=== PATIENT | female | born 2000 | race Caucasian/White ===

== ENCOUNTER → 2021-06-29 | Outpatient (CLI) | payer OTHER ==
--- NOTE | 2021-06-29 14:55 | REP ---
INDICATION: RIGHT BREAST LUMP. COMPARISON: None TECHNIQUE: Real-time sonographic evaluation of right breast performed. FINDINGS: There is an oval solid mass in the right retroareolar region at the site of a palpable lump. There is internal blood flow with Doppler evaluation. It measures 4.7 x 2.4 x 5.7 cm, average KP a 8.45. IMPRESSION: BIRADS/ACR category 4, suspicious. Solid retroareolar nodule measuring 4.7 x 2.4 x 5.7 cm. Recommend ultrasound-guided biopsy. RECOMMENDATION: Recommend ultrasound-guided biopsy right breast mass. <Electronically signed by Mark Taylor > 06/29/21 [id number]
== END ==
LOC: M WHC 12:05
PROVIDERS: ATTEND Family Medicine
DX: N63.10 Unspecified lump in the right breast, unspecified quadrant (principal)

== ENCOUNTER → 2021-07-21 | Outpatient (CLI) | payer OTHER ==
[~2021-07-21] MED LIST: PRENTAB9 PO
[2021-07-21 11:53] VITALS: BP 114/68
--- NOTE | 2021-07-21 18:22 | REP ---
INDICATION: BX RIGHT BREAST MASS WITH CLIP PLACEMENT IF INDICATED. COMPARISON: None. TECHNIQUE: The procedure was performed under the direct supervision of Dr. Taylor. Patient has a history of a 4.7 x 2.4 x 5.7 cm solid retroareolar nodule in the right breast seen on a previous ultrasound dated 06/29/2021. The risks and benefits of the procedure were explained to the patient and informed consent was obtained. The right breast nodule was localized using ultrasound guidance. The skin was prepped and draped in a sterile fashion. 7 mL 1% buffered Xylocaine was used as a local anesthetic. Using ultrasound guidance a 14-gauge coaxial needle biopsy system was inserted and6 core biopsy samples were obtained. A marker clip (HydroMark shape 4) was placed at the biopsy site The patient tolerated the procedure well and there were no immediate complications. After the appropriate amount of monitored convalescence, the patient was discharged from the department. EBL: Less than 1 mL FINDINGS: None IMPRESSION: Ultrasound-guided right breast biopsy with marker clip placement. (HydroMark shape 4) <Electronically signed by Nehemias Guillen > 07/21/21 1523 <Electronically signed by Mark Taylor > 07/21/21 0059
== END ==
LOC: M WHCPRO 10:15
PROVIDERS: ATTEND Family Medicine
DX: R92.8 Other abnormal and inconclusive findings on diagnostic imaging of breast (principal)

== ENCOUNTER 2021-10-13 07:11 | Outpatient (CLI) | payer OTHER ==
[~2021-10-13] VITALS: Ht 154.9 cm; Wt 77.9 kg
[2021-10-13 07:32] VITALS: BP 100/56
[2021-10-13] MEDS ORDERED: HOME MED LIST COMPLETE! XX SCH (07:35)
== END 2021-10-13 08:15 | disposition home or self-care (01) ==
LOC: M LDO 07:11
PROVIDERS: ATTEND Registered Nurse
DX: O26.892 Other specified pregnancy related conditions, second trimester (principal); R10.2 Pelvic and perineal pain; Z3A.27 27 weeks gestation of pregnancy
CPT/HCPCS: 59025; G0378; G0463

== ENCOUNTER 2021-12-30 07:34 | Inpatient (IN) | payer OTHER ==
[~2021-12-30] VITALS: Ht 154.9 cm; Wt 85.1 kg
[2021-12-30] VITALS (30 sets, daily range): BP systolic 95–144; BP diastolic 53–97
[2021-12-30] MEDS ORDERED: LIDOCAINE 1% MDV 20ML VIAL INFIL PRN (09:30)
[2021-12-30] MEDS ORDERED: OXYTOCIN DRIP 30 UNITS in IV 1 EA IV PRN (09:30)
[2021-12-30 10:20] LABS: HEMATOCRIT 33.3 % (36.0-47.0); HEMOGLOBIN 11.2 g/dl (12.0-15.5); MEAN CORPUSCULAR HEMOGLOBIN 29.2 pg (27.0-33.0); MEAN CORPUSCULAR HGB CONC 33.6 g/dl (32.0-36.5); MEAN CORPUSCULAR VOLUME 86.9 fl (80.0-96.0); PLATELET COUNT, AUTOMATED 292 10^3/uL (150-450); RED BLOOD COUNT 3.83 10^6/uL (4.00-5.40)
[2021-12-30] MEDS ORDERED: HOME MED LIST COMPLETE! XX SCH (11:10)
[2021-12-30] MEDS: LR 1,000 ML IV SCH ×2 (13:53→20:14)
[2021-12-30] MEDS ORDERED: LACTATED RINGER'S 1000 ML IV STA (14:42)
[2021-12-30] MEDS ORDERED: FENTANYL 2MCG/ML ROPIVACAINE 0.2% IN 0.9% NACL 100ML IVBAG As Ordered ONE (15:01)
[2021-12-30] MEDS ORDERED: REFLB XX ONE ×2 (15:01→21:24)
[2021-12-30] MEDS ORDERED: ePHEDrine SULFATE 25 MG/5 ML(5MG/ML) SYRINGE IV PRN (15:20)
[2021-12-30] MEDS ORDERED: EPIDURAL COMMENT XX SCH (15:20)
[2021-12-30] MEDS ORDERED: ONDANSETRON 4MG/2ML VIAL IV PRN (15:20)
[2021-12-30] MEDS ORDERED: NALOXONE INJ 0.4MG/1ML VIAL (J2310 PER 1MG) IV PRN (15:20)
[2021-12-30] MEDS ORDERED: EPIDURAL/PCA KEYS XX PRN (15:20)
[2021-12-30] MEDS ORDERED: diphenhydrAMINE 50MG/ML VIAL (J1200) IV PRN (15:20)
[2021-12-30] MEDS ORDERED: REFRIGERATOR IV KEYS XX PRN (15:20)
[2021-12-30] MEDS ORDERED: LACTATED RINGER'S 1000 ML IV PRN (15:20)
[2021-12-30] MEDS: FENTANYL/ROPIVACAINE/NACL BAG 100 ML EPIDURAL SCH ×2 (15:40→21:30)
[2021-12-31 01:12] LABS: CORD GAS ABE V -5.7; CORD GAS HCO3 V 17.4 MEQ/L; CORD GAS O2 SAT V 86.2 %; CORD GAS PCO2 V 29.5 mmHg; CORD GAS PH V 7.389 UNITS; CORD GAS PO2 V 38.5 mmHg; CORD GAS SBC V 19.6 MEQ/L; CORD GAS TCO2 V 18.3 MEQ/L
[2021-12-31 01:13] LABS: CORD GAS ABE A -8.1; CORD GAS HCO3 A 18.7 MEQ/L; CORD GAS O2 SAT A 88.3 %; CORD GAS PCO2 A 42.8 mmHg; CORD GAS PH A 7.258 UNITS; CORD GAS PO2 A 45.6 mmHg; CORD GAS SBC A 17.9 MEQ/L
[2021-12-31] MEDS ORDERED: METHYLERGONOVINE MALEATE 0.2 MG TAB PO PRN (01:20)
[2021-12-31] MEDS ORDERED: DIBUCAINE 1% OINTMENT 30GM TOP PRN (01:20)
[2021-12-31] MEDS ORDERED: PROMETHAZINE 25 MG TAB PO PRN (01:20)
[2021-12-31] MEDS ORDERED: RHOGAM 300 MCG (1500 IU) INJ (J2790) IM SCH (01:20)
[2021-12-31] MEDS: LR 1,000 ML IV SCH ×2 (01:20→06:39)
[2021-12-31] MEDS ORDERED: ONDANSETRON 4MG/2ML VIAL IV PRN (01:20)
[2021-12-31] MEDS ORDERED: OXYTOCIN DRIP 30 UNITS in IV 1 EA IV SCH (01:20)
[2021-12-31] MEDS ORDERED: MEASLES,MUMPS,RUBELLA VACCINE INJ (MMR-II) (90707) SC SCH (01:20)
[2021-12-31] MEDS: ACETAMINOPHEN 500 MG TAB PO SCH ×4 (02:00→20:00)
[2021-12-31 03:35] VITALS: BP 133/77
[2021-12-31] MEDS: IBUPROFEN 800 MG TAB PO SCH ×3 (05:10→22:00)
[2021-12-31 05:59] VITALS: BP 138/87
[2021-12-31] MEDS: PRENATAL VITAMINS CHEWABLE TABLET PO SCH (07:44)
[2021-12-31] MEDS: DOCUSATE SODIUM 100MG CAPSULE PO SCH ×2 (07:44→20:08)
[2021-12-31] MEDS ORDERED: PRENATAL VITAMINS CHEWABLE TABLET PO SCH (09:00)
[2021-12-31 18:00] VITALS: BP 136/61
[2022-01-01] MEDS: ACETAMINOPHEN 500 MG TAB PO SCH ×2 (02:00→08:22)
[2022-01-01] MEDS: IBUPROFEN 800 MG TAB PO SCH (05:11)
[2022-01-01 06:00] VITALS: BP 112/68
[2022-01-01 07:45] LABS: HEMATOCRIT 31.3 % (36.0-47.0); HEMOGLOBIN 10.2 g/dl (12.0-15.5); MEAN CORPUSCULAR HEMOGLOBIN 28.8 pg (27.0-33.0); MEAN CORPUSCULAR HGB CONC 32.6 g/dl (32.0-36.5); MEAN CORPUSCULAR VOLUME 88.4 fl (80.0-96.0); PLATELET COUNT, AUTOMATED 233 10^3/uL (150-450); RED BLOOD COUNT 3.54 10^6/uL (4.00-5.40); WHITE BLOOD COUNT 11.9 10^3/uL (4.0-10.0)
[2022-01-01] MEDS: DOCUSATE SODIUM 100MG CAPSULE PO SCH (08:21)
[2022-01-01] MEDS: PRENATAL VITAMINS CHEWABLE TABLET PO SCH (08:21)
== END 2022-01-01 13:00 | disposition home or self-care (01) | DRG 807 ==
LOC: M LDO 07:34 → M LDI 09:27 → M OBS 12-31 03:13
PROVIDERS: ADMIT Registered Nurse; ATTEND Obstetrics & Gynecology
PROC: 10E0XZZ Delivery of Products of Conception, External Approach (ICD-10-PCS; principal; 2021-12-31)
DX: O80 Encounter for full-term uncomplicated delivery (principal); Z37.0 Single live birth; Z3A.38 38 weeks gestation of pregnancy

== ENCOUNTER 2023-10-30 08:29 | Inpatient (IN) | payer OTHER ==
[~2023-10-30] VITALS: Ht 154.9 cm; Wt 90.7 kg
[2023-10-30] VITALS (9 sets, daily range): BP systolic 111–137; BP diastolic 59–83
[2023-10-30] MEDS ORDERED: CARBOPROST TROMETHAMINE 250 MCG/ML AMP IM PRN (09:00)
[2023-10-30] MEDS ORDERED: METHYLERGONOVINE MALEATE 0.2MG/ML 1ML VIAL IM PRN (09:00)
[2023-10-30] MEDS ORDERED: OXYTOCIN DRIP 30 UNITS in IV 1 EA IV PRN (09:00)
[2023-10-30] MEDS ORDERED: TRANEXAMIC ACID INJection 1,000 MG in NS 100 ML IV PRN (09:00)
[2023-10-30] MEDS ORDERED: INSULIN REGULAR IN 0.9 % NACL 100 UNIT in IV 1 EA IV SCH (09:00)
[2023-10-30] MEDS ORDERED: LIDOCAINE 1% MDV 20ML VIAL INFIL PRN (09:00)
[2023-10-30] MEDS ORDERED: NS 1,000 ML IV SCH (09:00)
[2023-10-30] MEDS ORDERED: INSULIN IV RATE CHANGE DOCUMENTATION ML/HR XX SCH (09:00)
[2023-10-30] MEDS ORDERED: LR 1,000 ML IV SCH (09:00)
[2023-10-30] MEDS ORDERED: OXYTOCIN INJ 10UNITS/ML 1ML VIAL IM PRN (09:00)
[2023-10-30] MEDS ORDERED: OXYTOCIN INJ 10UNITS/ML 1ML VIAL IV PRN (09:00)
[2023-10-30] MEDS: LACTATED RINGER'S 1000 ML IV STA (09:22)
[2023-10-30] MEDS: miSOPROStol 50MCG 1/2 TABLET PO PRN (09:36)
[2023-10-30 09:38] LABS: HEMATOCRIT 31.5 % (36.0-47.0); HEMOGLOBIN 10.4 g/dl (12.0-15.5); MEAN CORPUSCULAR HEMOGLOBIN 27.7 pg (27.0-33.0); MEAN CORPUSCULAR VOLUME 83.8 fl (80.0-96.0); PLATELET COUNT, AUTOMATED 281 10^3/uL (150-450); RED BLOOD COUNT 3.76 10^6/uL (4.00-5.40); WHITE BLOOD COUNT 6.8 10^3/uL (4.0-10.0)
[2023-10-30] MEDS ORDERED: HOME MED LIST COMPLETE! XX SCH (09:55)
[2023-10-30] MEDS: LR 1,000 ML IV SCH (13:12)
[2023-10-31] VITALS (65 sets, daily range): BP systolic 108–185; BP diastolic 56–111
[2023-10-31] MEDS ORDERED: diphenhydrAMINE 50MG/ML VIAL IV PRN (04:25)
[2023-10-31] MEDS ORDERED: LR 500 ML IV PRN (04:25)
[2023-10-31] MEDS ORDERED: ONDANSETRON 4MG 2ML VIAL IV PRN (04:25)
[2023-10-31] MEDS ORDERED: NALOXONE INJ 0.4MG/1ML VIAL IV PRN (04:25)
[2023-10-31] MEDS ORDERED: EPIDURAL/PCA KEYS XX PRN (04:25)
[2023-10-31] MEDS: FENTANYL/ROPIVACAINE/NACL BAG 100 ML EPIDURAL SCH (05:00)
[2023-10-31] MEDS: ePHEDrine SULFATE 25 MG/5 ML(5MG/ML) SYRINGE IVP PRN (06:19)
[2023-10-31] MEDS ORDERED: OXYTOCIN 30UNITS IN 0.9% NaCl 500ML IV BAG As Ordered ONE (07:26)
[2023-10-31] MEDS: OXYTOCIN DRIP 30 UNITS in IV 1 EA IV SCH ×2 (07:46→23:29)
[2023-10-31] MEDS: diphenhydrAMINE 50MG CAP PO ONE (13:00)
[2023-10-31] MEDS ORDERED: DIBUCAINE 1% OINTMENT 30GM TOP PRN (23:20)
[2023-10-31] MEDS ORDERED: RHOGAM 300MCG (1500IU) INJ IM SCH (23:20)
[2023-10-31] MEDS: LR 1,000 ML IV SCH (23:20)
[2023-10-31] MEDS ORDERED: METHYLERGONOVINE MALEATE 0.2MG/ML 1ML VIAL IM PRN (23:20)
[2023-10-31] MEDS ORDERED: ACETAMINOPHEN 500 MG TAB PO PRN (23:20)
[2023-10-31] MEDS ORDERED: IBUPROFEN 600MG TAB PO PRN (23:20)
[2023-10-31] MEDS ORDERED: METOCLOPRAMIDE INJ 10MG/2ML VIAL IV PRN (23:20)
[2023-10-31] MEDS: OXYTOCIN DRIP 30 UNITS in IV 1 EA IV PRN (23:22)
[2023-11-01 00:10] VITALS: BP 154/84
[2023-11-01 00:42] VITALS: BP 170/87
[2023-11-01 00:44] VITALS: BP 151/84
[2023-11-01 01:29] VITALS: BP 131/68; O2SAT 99
[2023-11-01] MEDS: IBUPROFEN 800 MG TAB PO PRN (01:45)
[2023-11-01] MEDS: ONDANSETRON 4MG 2ML VIAL IV PRN (01:45)
[2023-11-01 06:00] VITALS: BP 112/54; O2SAT 99
[2023-11-01] MEDS: PRENATAL VITAMINS CHEWABLE TABLET PO SCH (09:07)
[2023-11-01] MEDS: ACETAMINOPHEN TAB 650MG DOSE (2X325MG) PO PRN (22:34)
[2023-11-02] MEDS: DOCUSATE SODIUM 100MG CAPSULE PO PRN (00:51)
[2023-11-02 05:49] VITALS: BP 100/58; O2SAT 98
[2023-11-02] MEDS: MEASLES,MUMPS,RUBELLA VACCINE INJ (MMR-II) SC.IMMUN ONE (08:04)
== END 2023-11-02 17:40 | disposition home or self-care (01) | DRG 807 ==
LOC: M LDI 08:29 → M OBS 11-01 01:18
PROVIDERS: ADMIT Obstetrics & Gynecology; ATTEND Obstetrics & Gynecology
PROC: 3E0P7GC Introduction of Other Therapeutic Substance into Female Reproductive, Via Natural or Artificial Opening (ICD-10-PCS; 2023-10-30)
PROC: 10E0XZZ Delivery of Products of Conception, External Approach (ICD-10-PCS; principal; 2023-10-31)
DX: O24.420 Gestational diabetes mellitus in childbirth, diet controlled (principal); Z37.0 Single live birth; Z3A.39 39 weeks gestation of pregnancy; O13.4 Gestational [pregnancy-induced] hypertension without significant proteinuria, complicating childbirth